=== PATIENT | female | born 1965 | race Caucasian/White ===

== ENCOUNTER 2017-02-21 21:47 | Emergency (ER) | payer SELFPAY ==
[~2017-02-21] VITALS: Ht 165.1 cm; Wt 70.0 kg
[2017-02-21 21:48] VITALS: BP 156/94; PULSE 122; RESP 18; TEMP 97.9; O2SAT 96
[2017-02-21] MEDS ORDERED: IBUP800T23 PO (22:45)
[2017-02-21] MEDS ORDERED: CLIN1CAP6 PO (22:45)
[2017-02-21] MEDS ORDERED: TYLETAB34 PO (22:45)
[2017-02-21] MEDS ORDERED: CLINDAMYCIN 150 MG CAP PO ONE (22:45)
--- NOTE | 2017-02-21 22:45 | PD ---
HPI Chief Complaint: Oral / Dental Pain or Problem Time Seen by Provider: 22:38 Travel History International Travel<30 days: No Contact w/Intl Traveler<30days: No Traveled to known affect area: No History of Present Illness HPI Patient is a 51-year-old female presenting to emergency department for evaluation of right lower tooth pain. Patient states the symptoms started yesterday, she reports the pain as throbbing and an 8 out of 10. She states she 's been taking ibuprofen with no relief of symptoms. She denies any fevers, chills, nausea, vomiting, headache. Pain is exacerbated with chewing. She denies any dysphasia. PFSH Past Medical History Cerebrovascular Accident: Yes (X2) Hypertension: Yes Tetanus Vaccination: Unknown Influenza Vaccination: No ?: Not LMP: menapause Tubal Ligation: Yes Past Surgical History Abdominal Surgery: Yes (g-tube placement and removal) Oral Surgery: Yes (left hand ring finger, left ankle plates and screws) Other Surgery: Yes (double hernia right side) Social History Alcohol Use: No Tobacco Use: Yes Substance Use: No Allergies-Medications (Allergen,Severity, Reaction): Coded Allergies: No Known Allergies (Unverified , 02/21/17) Reported Meds & Prescriptions Reported Meds & Active Scripts Active No Active Prescriptions or Reported Medications Review of Systems Except as stated in HPI: all other systems reviewed are Neg HENT: Positive: Dental Difficulties Physical Exam Narrative GENERAL: Well-developed, well-nourished, alert female. Resting comfortably in no acute distress. SKIN: Warm and dry. HEAD: Normocephalic. EYES: No scleral icterus. No injection or drainage. MOUTH: Mucous membranes moist, no lesions, tongue and gums appear normal. Dental caries noted to the right lower second and third molars. NECK: Supple, trachea midline. No JVD or lymphadenopathy. CARDIOVASCULAR: Regular rate and rhythm without murmurs, gallops, or rubs. RESPIRATORY: Breath sounds equal bilaterally. No accessory muscle use. GASTROINTESTINAL: Abdomen soft, non-tender, nondistended. MUSCULOSKELETAL: No cyanosis, or edema. BACK: Nontender without obvious deformity. No CVA tenderness. NEUROLOGICAL: Awake and alert. Cranial nerves II through XII intact. Motor and sensory grossly within normal limits. Left facial droop. Normal speech. Data Data Last Documented VS Vital Signs Date Time Temp Pulse Resp B/P (MAP) Pulse Ox O2 Delivery O2 Flow Rate FiO2 02/21/17 21:48 97.9 122 18 156/94 (114) 96 Room Air MDM Medical Decision Making Medical Screen Exam Complete: Yes Emergency Medical Condition: Yes Interpretation(s) Vital Signs Date Time Temp Pulse Resp B/P (MAP) Pulse Ox O2 Delivery O2 Flow Rate FiO2 02/21/17 21:48 97.9 122 18 156/94 (114) 96 Room Air Differential Diagnosis Dental caries versus abscess versus neuralgia versus other Narrative Course Patient is a 51 year female presenting to emergency for right lower tooth pain. Exam findings are consistent with dental caries. No obvious sign of abscess noted. Patient will be started on antibiotics empirically. She is advised to follow-up with a dentist for further evaluation and management. Discussed with patient that as the root is exposed they can cause pain. She was encouraged to obtain [id number]-[id number] Orajel or similar agent and use as directed. She was encouraged to return to emergency department with any new or worsening symptoms. Patient verbalized understanding of instructions. Patient stable for discharge. She will be provided with a list of dental clinics in the area. Diagnosis Primary Impression: Dental caries Additional Impression: Pain, dental Referrals: Dentist Patient Instructions: Dental Caries (ED), General Instructions Additional Instructions: Follow-up with his dentist Complete full course of antibiotics as prescribed Obtain [id number] Orajel or similar agents and use as directed and as needed for pain Return to emergency department for any new or worsening symptoms Do not drive or operate machinery while taking narcotic pain medication Med/Other Pt SpecificInfo: Prescription(s) given Scripts Acetaminophen-Codeine (Tylenol-Codeine #3) 300-30 mg Tab 1 TAB PO Q4H Y for PAIN, #6 TAB 0 Refills Prov: Ashley Llanes 02/21/17 Ibuprofen (Ibuprofen) 800 Mg Tab 800 MG PO Q8H Y for Pain/Inflammation, #60 TAB 0 Refills Prov: Ashley Llanes 02/21/17 Clindamycin (Clindamycin) 300 Mg Cap 300 MG PO TID for Infection for 10 Days, CAP 0 Refills Prov: Ashley Llanes 02/21/17 Disposition: 01 DISCHARGE HOME Condition: Stable Ashley Llanes Feb 21, 2017 22:45
== END 2017-02-21 23:00 | disposition home or self-care (01) ==
LOC: NEPK 21:47
DX: K02.9 Dental caries, unspecified (principal); Z72.0 Tobacco use
CPT/HCPCS: 99284

== ENCOUNTER 2017-05-10 10:21 | Emergency (ER) | payer SELFPAY ==
[~2017-05-10] VITALS: Ht 165.1 cm; Wt 72.0 kg
[~2017-05-10 10:21] MED LIST: CLIN300C5 PO; IBUP1TAB7 PO; TYLETAB34 PO
[2017-05-10 10:22] VITALS: BP 218/128; PULSE 101; RESP 20; TEMP 98.7; O2SAT 97
[2017-05-10] MEDS ORDERED: HYDR25TA5 PO (10:50)
[2017-05-10] MEDS ORDERED: LISI-515 PO (10:50)
[2017-05-10] MEDS ORDERED: PRED20 PO (10:50)
--- NOTE | 2017-05-10 10:57 | PD ---
HPI . Ankle pain Chief Complaint: Injury Time Seen by Provider: 10:39 Travel History International Travel<30 days: No Contact w/Intl Traveler<30days: No Traveled to known affect area: No History of Present Illness HPI This patient presents with chief complaint of left ankle pain. Onset yesterday. She is status post ORIF of a left ankle fracture in July 2016. She states that she was told at that time that she would develop arthritis in her ankle. She states that the ankle started hurting spontaneously yesterday. She rates the pain as 8/10. Pain is exacerbated by walking on the ankle. Pain has been unrelieved by Aleve and ibuprofen. She has taken a therapeutic dose of Aleve X 3 in 24 hours. Patient admits to spotting compliance with medication regimen due to no primary care physician. PFSH Past Medical History Cerebrovascular Accident: Yes (X2) GERD: Yes Hypertension: Yes Influenza Vaccination: No ?: Not Tubal Ligation: Yes Past Surgical History Abdominal Surgery: Yes (g-tube placement and removal) Oral Surgery: Yes (left hand ring finger, left ankle plates and screws) Other Surgery: Yes (double hernia right side) Social History Alcohol Use: No Tobacco Use: Yes Substance Use: No Allergies-Medications (Allergen,Severity, Reaction): Coded Allergies: No Known Allergies (Unverified Adverse Reaction, Unknown, 05/10/17) Reported Meds & Prescriptions Reported Meds & Active Scripts Active Prednisone 20 Mg Tab 40 Mg PO DAILY 5 Days Take 40 mg (2 tablets) daily for 5 days Hydrochlorothiazide 25 Mg Tab 25 Mg PO DAILY Lisinopril 20 Mg Tab 20 Mg PO DAILY Tylenol-Codeine #3 (Acetaminophen-Codeine) 300-30 mg Tab 1 Tab PO Q4H PRN Ibuprofen 800 Mg Tab 800 Mg PO Q8H PRN Clindamycin (Clindamycin HCl) 300 Mg Cap 300 Mg PO TID 10 Days Review of Systems Except as stated in HPI: all other systems reviewed are Neg Musculoskeletal: Positive: Arthralgias, Limited ROM Physical Exam Narrative GENERAL: Awake and alert and in no acute distress. SKIN: Warm and dry. HEAD: Normocephalic/atraumatic. EYES: Pupils are equal. Extraocular movements are intact. ENT: She does have some left-sided facial weakness compatible with her previous stroke. NECK: Normal range of motion. CARDIOVASCULAR: Regular rate and rhythm. RESPIRATORY: Nonlabored respirations. MUSCULOSKELETAL: Scar on the left lateral ankle. Diffuse ankle tenderness. No redness or warmth of the ankle joint. The ankle is stable. She is distally neurovascularly intact NEUROLOGICAL: Nonfocal. PSYCHIATRIC: Appropriate mood and affect. Data Data Last Documented VS Vital Signs Date Time Temp Pulse Resp B/P (MAP) Pulse Ox O2 Delivery O2 Flow Rate FiO2 05/10/17 10:22 98.7 101 20 218/128 (158) 97 Room Air Orders Orders Ed Discharge Order (05/10/17 10:50) MDM Medical Decision Making Medical Screen Exam Complete: Yes Emergency Medical Condition: Yes Differential Diagnosis Differential diagnosis of joint pain includes but is not limited to arthritis, gout, sprain/strain, fracture, dislocation, bursitis Narrative Course Patient presents with left ankle pain following a fracture in July. She states that she was told to expect arthritis in her ankle. She started having pain yesterday. Her medication without relief. I have written her a prescription for a five-day course of prednisone. This patient has multiple other medical problems including hypertension. She has no primary care provider. I have given her a referral to the [facility] clinic and have written her prescriptions for lisinopril and HCTZ which are free at [facility]. 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, left ankle and foot Referrals: [facility] 1 day for management of blood pressure Patient Instructions: General Instructions, Arthritis (ED) Departure Forms: Tests/Procedures Scripts Prednisone (Prednisone) 20 Mg Tab 40 MG PO DAILY for 5 Days, #10 TAB 0 Refills Take 40 mg (2 tablets) daily for 5 days Prov: Jen Kay MD 05/10/17 Hydrochlorothiazide (Hydrochlorothiazide) 25 Mg Tab 25 MG PO DAILY, #30 TAB 0 Refills Prov: Jen Kay MD 05/10/17 Lisinopril (Lisinopril) 20 Mg Tab 20 MG PO DAILY, #30 TAB 0 Refills Prov: Jen Kay MD 05/10/17 Disposition: 01 DISCHARGE HOME Condition: Stable Jen Kay MD May 10, 2017 10:57
== END 2017-05-10 11:11 | disposition home or self-care (01) ==
LOC: NEPD 10:21
DX: M19.172 Post-traumatic osteoarthritis, left ankle and foot (principal); I10 Essential (primary) hypertension; K21.9 Gastro-esophageal reflux disease without esophagitis; Z86.73 Personal history of transient ischemic attack (TIA), and cerebral infarction without residual deficits; Z72.0 Tobacco use
CPT/HCPCS: 99284